=== PATIENT | male | born 1980 | race Caucasian/White ===

== ENCOUNTER 2022-12-20 20:36 | Emergency (ER) | payer OTHER ==
[~2022-12-20] VITALS: Ht 172.7 cm; Wt 80.5 kg
[2022-12-20 20:36] VITALS: TEMP 97.6
[2022-12-20 21:31] LABS: BASO # 0.1 10^3/uL (0.0-0.2); BASO % 0.7 % (0.0-1.0); EOS # 0.3 10^3/uL (0.0-0.5); EOS % 3.1 % (0.0-3.0); HEMATOCRIT 45.8 % (42.0-52.0); HEMOGLOBIN 15.4 g/dl (13.5-17.5); LYMPH # 2.9 10^3/uL (1.5-5.0); LYMPH % 33.8 % (24.0-44.0); MEAN CORPUSCULAR HEMOGLOBIN 30.1 pg (27.0-33.0); MEAN CORPUSCULAR HGB CONC 33.6 g/dl (32.0-36.5); MEAN CORPUSCULAR VOLUME 89.6 fl (80.0-96.0); MONO # 0.7 10^3/uL (0.0-0.8); MONO % 7.6 % (2.0-8.0); NEUTROPHILS # 4.7 10^3/uL (1.5-8.5); NEUTROPHILS % 54.5 % (36.0-66.0); PLATELET COUNT, AUTOMATED 293 10^3/uL (150-450); RED BLOOD COUNT 5.11 10^6/uL (4.30-6.10); WHITE BLOOD COUNT 8.7 10^3/uL (4.0-10.0)
[2022-12-20 21:56] LABS: BLOOD UREA NITROGEN 14 MG/DL (9-23); CALCIUM LEVEL 9.3 MG/DL (8.5-10.1); CARBON DIOXIDE LEVEL 25 MMOL/L (20-31); CHLORIDE LEVEL 105 MMOL/L (98-107); CK-MB VALUE MASS < 1.0 NG/ML (<3.6); CPK CREATINE PHOSPHOKINASE 159 U/L (46-171); GLOMERULAR FILTRATION RATE > 60.0 (>60); GLUCOSE, FASTING 110 MG/DL (60-100); MB/CK RELATIVE INDEX 0.62 (< OR =4); POTASSIUM SERUM 3.8 MMOL/L (3.5-5.1); SODIUM LEVEL 141 MMOL/L (136-145)
[2022-12-20 22:49] VITALS: BP 130/83; O2SAT 97
[2022-12-20 22:49] LABS: CK-MB VALUE MASS < 1.0 NG/ML (<3.6)
[2022-12-20 23:03] LABS: CPK CREATINE PHOSPHOKINASE 154 U/L (46-171); MB/CK RELATIVE INDEX 0.64 (< OR =4)
== END 2022-12-20 22:54 | disposition home or self-care (01) ==
LOC: M ED 20:36
DX: R07.9 Chest pain, unspecified (principal)

== ENCOUNTER 2025-02-12 10:53 | Observation (INO) | payer OTHER ==
[~2025-02-12] VITALS: Ht 175.3 cm; Wt 90.4 kg
[2025-02-12] MEDS: ONDANSETRON 4MG/2ML VIAL IV ONE (12:05)
[2025-02-12] MEDS: MORPHINE 4 MG/ML 1 ML VIAL IV ONE (12:05)
[2025-02-12] MEDS: NS (Normal Saline) 0.9% 1,000 ML IV SCH (12:25)
[2025-02-12 12:29] LABS: PLATELET COUNT, AUTOMATED 293 10^3/uL (150-450)
[2025-02-12 12:56] LABS: CALCIUM LEVEL 9.3 MG/DL (8.5-10.1); CARBON DIOXIDE LEVEL 26 MMOL/L (20-31); CHLORIDE LEVEL 103 MMOL/L (98-107); CREATININE FOR GFR 0.82 MG/DL (0.70-1.30); GLOMERULAR FILTRATION RATE > 90.0 (>60); POTASSIUM SERUM 4.3 MMOL/L (3.5-5.1); SODIUM LEVEL 139 MMOL/L (136-145)
[2025-02-12] MEDS ORDERED: HOME MED LIST COMPLETE! XX SCH (13:35)
[2025-02-12] MEDS ORDERED: ONDANSETRON 4MG/2ML VIAL As Ordered ONE (14:29)
[2025-02-12] MEDS ORDERED: LIDOCAINE 2% 100 MG/5 ML SDV (FOR ANES.) As Ordered ONE (14:29)
[2025-02-12] MEDS ORDERED: KETOROLAC 30 MG/ML 1 ML VIAL As Ordered ONE (14:29)
[2025-02-12] MEDS ORDERED: dexAMETHasone 4 MG/ML 1 ML VIAL As Ordered ONE (14:29)
[2025-02-12] MEDS ORDERED: MIDAZOLAM INJ 2 MG/2 ML VIAL As Ordered ONE (14:30)
[2025-02-12] MEDS ORDERED: HYDROmorphone HCL 2 MG/ML 1 ML VIAL As Ordered ONE (16:02)
[2025-02-12] MEDS ORDERED: ONDANSETRON 4MG/2ML VIAL IV PRN (17:10)
[2025-02-12] MEDS ORDERED: MORPHINE 4 MG/ML 1 ML VIAL IV PRN (17:10)
[2025-02-12] MEDS ORDERED: diphenhydrAMINE 50 MG/ML VIAL IV PRN (17:10)
[2025-02-12] MEDS ORDERED: OXYC-517 PO (17:18)
[2025-02-12] MEDS ORDERED: [UNRECOGNIZED DRUG - CODE] PO (17:18)
[2025-02-12] MEDS: MEPERIDINE 25 MG/ML 1 ML VIAL IV PRN (17:44)
[2025-02-12 18:25] VITALS: BP 141/80; TEMP 98.7; O2SAT 99
[2025-02-12 18:55] VITALS: BP 130/84; TEMP 98.4; O2SAT 98
[2025-02-12 20:00] VITALS: BP 142/90; TEMP 99.6; O2SAT 91
[2025-02-12] MEDS: DOCUSATE SODIUM 100 MG CAPSULE PO SCH (21:00)
[2025-02-12 21:15] VITALS: BP 140/79; TEMP 99.3; O2SAT 95
[2025-02-12 22:15] VITALS: BP 130/76; TEMP 99.4; O2SAT 96
[2025-02-12] MEDS: ACETAMINOPHEN 325 MG TAB PO PRN (22:15)
[2025-02-12] MEDS ORDERED: IBUPROFEN 600 MG TAB PO PRN (23:00)
[2025-02-13 00:32] VITALS: BP 120/67; TEMP 99.2; O2SAT 95
[2025-02-13] MEDS: ceFAZolin SODIUM 2 GM in DEXTROSE 5% (D5W) ADV/MINI-BAG 50 ML IV SCH (01:15)
[2025-02-13 05:36] VITALS: BP 110/66; TEMP 98.7; O2SAT 96
[2025-02-13 07:22] LABS: PLATELET COUNT, AUTOMATED 260 10^3/uL (150-450)
[2025-02-13 07:39] VITALS: BP 111/62; TEMP 98.4; O2SAT 97
[2025-02-13] MEDS ORDERED: ENOXAPARIN 40 MG/0.4 ML SYRINGE (J1650 PER 10MG) SC SCH (21:00)
== END 2025-02-13 14:35 | disposition home or self-care (01) ==
LOC: EDBD 10:53 → M ED 10:53 → M SDC 14:35 → M RR INP 14:36 → M MS5PR 18:21
PROVIDERS: ADMIT Orthopaedic Surgery; ATTEND Orthopaedic Surgery
DX: S72.042A Displaced fracture of base of neck of left femur, initial encounter for closed fracture (principal); W00.0XXA Fall on same level due to ice and snow, initial encounter; Y92.481 Parking lot as the place of occurrence of the external cause; Y93.01 Activity, walking, marching and hiking; Y99.8 Other external cause status; Z88.0 Allergy status to penicillin; Z88.1 Allergy status to other antibiotic agents; Z88.2 Allergy status to sulfonamides
CPT/HCPCS: 27235; 36415; 72170; 73501; 73502; 73552; 76000; 80048; 85027; 96361; 96374; 96375; 96376; 97116; 97161; 97165; 97535; 99285; C1713; C1769; J0688; J1100; J1171; J1885; J2175; J2250; J2405; J3010

== ENCOUNTER → 2025-02-26 | Outpatient (CLI) | payer OTHER ==
[~2025-02-26] MED LIST: OXYC-517 PO; [UNRECOGNIZED DRUG - CODE] PO
== END ==
LOC: M SOG 07:36
PROVIDERS: ATTEND Orthopaedic Surgery
DX: M25.552 Pain in left hip (principal)